=== PATIENT | female | born 1990 | race African-American/Black ===

== ENCOUNTER 2025-06-05 02:10 | Inpatient (IN) | payer OTHER ==
[2025-06-05] MEDS: LACTATED RINGERS SOLUTION 1,000 ML IV SCH (03:00)
[2025-06-05 03:30] LABS: ABSOLUTE IMMATURE GRANULOCYTES 0.06 x10^3/uL (0.0-0.031); BASOPHILS # 0.02 x10^3/uL (0.01-0.08); EOSINOPHIL % 0.3 % (0.7-5.8); EOSINOPHILS # 0.04 x10^3/uL (0.04-0.36); MCHC 32.9 g/dl (32.2-35.5); MEAN CELL VOLUME 81.6 fl (79.4-94.8); MEAN PLT VOLUME 11.8 fl (9.4-12.3); MONOCYTE # 0.64 x10^3/uL (0.24-0.86); MONOCYTE % 4.2 % (4.7-12.5); RDW 16.3 % (12.1-16.8)
[2025-06-05 03:39] LABS: INR 0.95 (0.83-1.09); PROTHROMBIN TIME (PATIENT) 10.5 SEC (9.7-13.0)
[2025-06-05 03:42] LABS: ACTIVATED PTT 25.9 SECONDS (25.2-36.5)
[2025-06-05 03:45] LABS: GLUCOSE,RANDOM 98.0 mg/dL (74-106)
[2025-06-05 03:47] LABS: CO2 22.0 mmol/L (21-32)
[2025-06-05 03:51] LABS: CREATININE 0.54 mg/dL (0.55-1.3)
[2025-06-05] MEDS ORDERED: FENTANYL/BUPIVACAINE/NS/PF - PCEA - 50 ML DISP.SYRIN EP ONE ×3 (03:55→13:34)
[2025-06-05 04:11] VITALS: BMI 38.4
[2025-06-05] MEDS ORDERED: NALOXONE HCL 0.4 MG/ML VIAL IVPUSH PRN (04:39)
[2025-06-05] MEDS ORDERED: AMPICILLIN SODIUM 2 GM VIAL ONE (04:58)
[2025-06-05] MEDS: AMPICILLIN - 2 GM in SODIUM CHLORIDE 100 ML IVPB ONE (05:02)
[2025-06-05] MEDS: FENTANYL/BUPIVACAINE/NS/PF - PCEA - 50 ML DISP.SYRIN EP SCH (05:05)
[2025-06-05 07:20] LABS: SGOT/AST 14 U/L (5-34)
[2025-06-05 07:24] LABS: SGPT/ALT < 6 U/L (0-55)
[2025-06-05] MEDS ORDERED: AMPICILLIN SODIUM 1 GM VIAL ONE ×3 (08:26→17:09)
[2025-06-05] MEDS ORDERED: OXYTOCIN 30 UNITS in 0.9% NS 30 UNIT/500 ML INFUS.BAG IVPB ONE (08:26)
[2025-06-05] MEDS: AMPICILLIN - 1 GM in SODIUM CHLORIDE 100 ML IVPB SCH (08:38)
[2025-06-05] MEDS: OXYTOCIN 30 UNITS in 0.9% NS 30 UNIT/500 ML INFUS.BAG IVPB SCH (08:40)
[2025-06-05] MEDS ORDERED: FENTANYL CITRATE/PF 50 MCG/ML VIAL ONE (13:53)
[2025-06-05] MEDS ORDERED: OXYTOCIN 20 UNITS in 0.9% NS 20 UNIT/1,000 ML INFUS.BAG IV ONE (17:09)
[2025-06-05] MEDS ORDERED: LIDOCAINE HCL 1% PRESERVATIVE FREE - 30ML VIAL ONE (17:27)
[2025-06-05] MEDS: OXYTOCIN 20 UNITS in 0.9% NS 20 UNIT/1,000 ML INFUS.BAG IV SCH (17:45)
[2025-06-05] MEDS ORDERED: BENZOCAINE 28 GM HEMORRHOIDAL OINTMENT TP PRN (18:08)
[2025-06-05] MEDS ORDERED: METHYLERGONOVINE MALEATE 0.2 MG/1 ML AMP IM PRN (18:08)
[2025-06-05] MEDS ORDERED: BISACODYL 10 MG SUPP.RECT RC PRN (18:08)
[2025-06-05 18:22] LABS: CORD BASE EXCESS -3.8 mmol/L (0-2); CORD HCO3 22.9 mmHg (20-29); CORD PCO2 46.9 mmHg (30-78); CORD pH 7.306 (7.14-7.44)
[2025-06-05] MEDS ORDERED: IBUPROFEN 600 MG TABLET (FP) PO ONE (18:55)
[2025-06-05] MEDS: IBUPROFEN 600 MG TABLET (FP) PO PRN (19:00)
[2025-06-06 07:09] LABS: ABSOLUTE IMMATURE GRANULOCYTES 0.11 x10^3/uL (0.0-0.031); BASOPHILS # 0.03 x10^3/uL (0.01-0.08); EOSINOPHIL % 0.6 % (0.7-5.8); EOSINOPHILS # 0.09 x10^3/uL (0.04-0.36); MCHC 32.8 g/dl (32.2-35.5); MEAN CELL VOLUME 82.3 fl (79.4-94.8); MEAN PLT VOLUME 11.4 fl (9.4-12.3); MONOCYTE # 1.02 x10^3/uL (0.24-0.86); MONOCYTE % 6.9 % (4.7-12.5); RDW 16.4 % (12.1-16.8)
[2025-06-06] MEDS: WITCH HAZEL 50% (TUCKS) 40 PAD/JAR PAD TP PRN (20:22)
[2025-06-06] MEDS: BENZOCAINE 20% 57 GM BOTTLE TP PRN (20:34)
[2025-06-06] MEDS ORDERED: SENNOSIDES/DOCUSATE COMBO (SENNA PLUS) TABLET (UD) PO PRN (22:00)
[2025-06-07] MEDS: ACETAMINOPHEN 325 MG TABLET (FP) PO PRN (11:40)
[2025-06-07 12:27] LABS: MCHC 32.3 g/dl (32.2-35.5); MEAN CELL VOLUME 82.9 fl (79.4-94.8); MEAN PLT VOLUME 11.5 fl (9.4-12.3); RDW 16.6 % (12.1-16.8)
[2025-06-07 13:51] LABS: GLUCOSE,RANDOM 91 mg/dL (74-106)
[2025-06-07 13:52] LABS: TOT PROT 5.8 g/dl (6.4-8.2)
[2025-06-07 13:53] LABS: CO2 26 mmol/L (21-32)
[2025-06-07 13:54] LABS: ALK PHOS 175 U/L (40-150)
[2025-06-07 13:57] LABS: CREATININE 0.66 mg/dL (0.55-1.3); SGOT/AST 17 U/L (5-34)
[2025-06-07 14:15] LABS: SGPT/ALT < 6 U/L (0-55)
[2025-06-07] MEDS: LABETALOL HCL 200 MG TABLET (FP) PO ONE (15:23)
[2025-06-08 08:53] VITALS: TEMP 98.4
[2025-06-08] MEDS: LABETALOL HCL 200 MG TABLET (FP) PO SCH (10:28)
[2025-06-08 10:33] VITALS: BP 129/85; PULSE 112; RESP 129
== END 2025-06-08 19:35 | disposition home or self-care (01) | DRG 560 ==
LOC: JDEL 02:10 → JLDR 02:50 → J3W 20:37
PROVIDERS: ADMIT Obstetrics & Gynecology; ATTEND Obstetrics & Gynecology
PROC: 10E0XZZ Delivery of Products of Conception, External Approach (ICD-10-PCS; principal; 2025-06-05)
PROC: 0W8NXZZ Division of Female Perineum, External Approach (ICD-10-PCS; 2025-06-05)
DX: O99.824 Streptococcus B carrier state complicating childbirth (principal); O34.13 Maternal care for benign tumor of corpus uteri, third trimester; O99.013 Anemia complicating pregnancy, third trimester; Z3A.39 39 weeks gestation of pregnancy; Z37.0 Single live birth
CPT/HCPCS: 36415; 36600; 59025; 59409; 80048; 80053; 82803; 82977; 83010; 84450; 84460; 84550; 85025; 85027; 85032; 85610; 85730; 86780; 86850; 86900; 86901